=== PATIENT | female | born 1975 | race Hispanic/Latino ===

== ENCOUNTER 2016-11-30 18:29 | Inpatient (IN) | payer MEDICAID ==
--- NOTE | 2016-11-30 20:06 | C.PDOC ---
History Of Present Illness 41 yr old female presents to the ER for heroin detox. Patient was pre-screened for detox. Patient denies any medical c/o. Time Seen by Provider: 11/30/16 19:23 Chief Complaint (Nursing): Substance Abuse History Per: Patient History/Exam Limitations: no limitations Onset/Duration Of Symptoms: Persistent Current Symptoms Are (Timing): Still Present Recent travel outside of the [place]: No Past Medical History Reviewed: Historical Data, Nursing Documentation, Vital Signs Vital Signs: Last Vital Signs Temp 97.9 F 11/30/16 23:22 Pulse 79 11/30/16 23:22 Resp 20 11/30/16 23:22 BP 123/75 11/30/16 23:22 Pulse Ox 99 12/01/16 02:02 Family History: States: No Known Family Hx - Social History Hx Alcohol Use: Yes Hx Substance Use: Yes - Immunization History Hx Tetanus Toxoid Vaccination: No Hx Influenza Vaccination: No Hx Pneumococcal Vaccination: No Review Of Systems Except As Marked, All Systems Reviewed And Found Negative. Constitutional: Negative for: Fever Cardiovascular: Negative for: Chest Pain Gastrointestinal: Negative for: Nausea, Vomiting Neurological: Negative for: Weakness, Numbness Physical Exam - Physical Exam Appears: Non-toxic, No Acute Distress Skin: Warm, Dry Head: Atraumatic, Normacephalic Eye(s): bilateral: PERRL, Other (small pupils ) Ear(s): Bilateral: Normal Oral Mucosa: Moist Neck: Normal, Normal ROM, No Paracervical Tenderness, No Step Off Deformity, Supple Chest: Symmetrical, No Tenderness Cardiovascular: Rhythm Regular, No Murmur Respiratory: Normal Breath Sounds, No Rales, No Rhonchi, No Stridor, No Wheezing Gastrointestinal/Abdominal: Normal Exam, Soft, No Tenderness, No Guarding, No Rebound Extremity: Normal ROM, No Swelling, Other (No tremors. ) Extremity: Bilateral: Normal Color And Temperature, Normal ROM Neurological/Psych: Oriented x3, Normal Speech, Normal Motor Gait: Steady ED Course And Treatment - Laboratory Results Result Diagrams: 11/30/16 20:27 11/30/16 20:01 O2 Sat by Pulse Oximetry: 99 Pulse Ox Interpretation: Normal Progress Note: Pt is medically cleared for detox. Pt was evaluated by crisis and admitted to Detox, remains stable in ER Reassessment Condition: Improved Medical Decision Making Medical Decision Making: PLAN: * Alcohol Serum * Drug Screen * CBC * Urinalysis Disposition - Disposition Disposition: HOME/ ROUTINE Disposition Time: 02:01 Condition: STABLE - Clinical Impression Clinical Impression: Opiate dependence - PA / MECHANICAL ESTIMATOR / Resident Statement MD/DO has reviewed & agrees with the documentation as recorded. - Scribe Statement The provider has reviewed the documentation as recorded by the Scribe Concepcion Hughes All medical record entries made by the Aceibmargret were at my direction and personally dictated by me. I have reviewed the chart and agree that the record accurately reflects my personal performance of the history, physical exam, medical decision making, and the department course for this patient. I have also personally directed, reviewed, and agree with the discharge instructions and disposition.
[2016-11-30 20:10] LABS: CHLORIDE 99 mmol/L (98-107); POTASSIUM 3.9 mmol/L (3.6-5.2); SODIUM 139 mmol/L (132-148)
[2016-11-30 20:12] LABS: GFR AFRICAN-AMERICAN > 60
[2016-11-30 20:13] LABS: ALB/GLOB RATIO 1.2 (1.0-2.1); ALKALINE PHOSPHATASE 60 U/L (38-126); ALT/SGPT 10 U/L (9-52); AST/SGOT 32 U/L (14-36); BILIRUBIN,TOTAL 0.6 mg/dL (0.2-1.3); BLOOD UREA NITROGEN 7 mg/dL (7-17); CALCIUM 8.8 mg/dl (8.6-10.4); CARBON DIOXIDE 26 mmol/L (22-30); GLUCOSE,RANDOM 86 mg/dL (65-105); TOTAL PROTEIN 7.6 g/dL (6.3-8.3)
[2016-11-30 20:14] LABS: ALCOHOL SERUM < 10 mg/dl (0-10)
[2016-11-30 20:15] LABS: RBC URINE 21 /hpf (0-3); URINE BACTERIA RARE (<OCC); URINE BILIRUBIN NEGATIVE (NEGATIVE); URINE BLOOD 3+ (NEGATIVE); URINE COLOR Yellow (YELLOW); URINE GLUCOSE (UA) NORMAL (Normal); URINE KETONE NEGATIVE (NEGATIVE); URINE LEUKOCYTE ESTERASE NEG Leu/uL (Negative); URINE PROTEIN NEGATIVE (NEGATIVE); URINE UROBILINOGEN NORMAL mg/dL (0.2-1.0); WBC URINE 2 /hpf (0-5)
[2016-11-30 20:31] LABS: BASO % 0.3 % (0.0-2.0); EOS # 0.1 K/uL (0.0-0.7); HEMATOCRIT 35.7 % (34.0-47.0); LYMPH # 2.2 K/uL (1.0-4.3); LYMPH % 34.4 % (20.0-40.0); MEAN CELL VOLUME 85.6 fL (81.0-99.0); MEAN CORPUSCULAR HEMOGLOBIN 27.7 pg (27.0-31.0); MEAN CORPUSCULAR HGB CONC 32.4 g/dL (33.0-37.0); MONO # 0.4 K/uL (0.0-0.8); MONO % 6.1 % (0.0-10.0); WHITE BLOOD COUNT 6.4 K/uL (4.8-10.8)
[2016-11-30] MEDS ORDERED: Buprenorphine Hydrochloride 2 mg SL ONE ×2 (23:03→23:12)
[2016-11-30] MEDS ORDERED: Benzocaine/Menthol (Cepacol) Lozenge PO PRN (23:03)
[2016-12-01] MEDS ORDERED: Buprenorphine Hydrochloride 2 mg SL SCH ×2 (00:04→10:00)
[2016-12-01] MEDS ORDERED: Buprenorphine Hydrochloride 2 mg SL ONE ×2 (00:17→16:49)
[2016-12-01] MEDS: Buprenorphine Hydrochloride 2 mg SL SCH (10:36)
--- NOTE | 2016-12-01 11:10 | PCM.PSYCH ---
Initial Psychiatric Evaluation - Initial Psychiatric Evaluation Type of Admission: Voluntary Legal Status: Capacity Chief Complaint (in patient's own words): "I need to stop heroin" History of Present Illness and Precipitating Events: The patient is seen, chart reviewed and case discussed. This is a 41-year-old -Finnish female, single with 2 children, unemployed and homeless. The patient is here for heroin use. She uses intranasally up to 30 bags a day for the past 10 years. This is her second detox and she had been to rehabilitation once. She used methadone for 8 years at [facility] in [place] but quit 2 years ago. She also uses cocaine mostly crack and denies all other substances except for Xanax. She states that she takes 1 or 2 sticks a day but only a few months. She denies any withdrawal symptoms from them. She reports depressive symptoms including anhedonia, low self-esteem and poor sleep and appetite. However she denies feeling suicidal or hopeless. No manic or psychotic symptoms elicited. Past psych history: She was on Seroquel in the past and when she was 16 years old she attempted suicide. No psych admissions since then. Family psych history: Denies Medical history: Overweight Current Medications: Active Medications Generic Name Dose Route Start Last Admin Trade Name Freq PRN Reason Stop Dose Admin Benzocaine/Menthol 1 angelia 11/30/16 23:03 Cepacol Sore Throat PO QID PRN Sore Throat Buprenorphine HCl 8 mg 12/01/16 10:00 12/01/16 10:36 Subutex SL 12/05/16 09:59 8 mg DAILY JIMY Administration Taper Clonidine HCl 0.1 mg 11/30/16 23:03 12/01/16 02:17 Catapres PO 0.1 mg Q8 PRN Administration COWS Score More or Equal to 5 Hydroxyzine HCl 25 mg 11/30/16 23:06 12/01/16 08:29 Atarax PO 25 mg Q6 PRN Administration Agitation Influenza Virus Vaccine 45 mcg 12/03/16 10:00 Afluria IM 12/03/16 10:01 .ONCE ONE Loperamide HCl 2 mg 11/30/16 23:03 Imodium PO Q8 PRN Diarrhea Nicotine 1 patch 12/01/16 10:00 12/01/16 10:35 Nicoderm Cq TD 1 patch DAILY JIMY Administration Ondansetron HCl 4 mg 11/30/16 23:03 Zofran Tab PO Q8 PRN Nausea/Vomiting Pneumococcal Polyvalent Vaccine 0.5 ml 12/03/16 10:00 Pneumovax 23 Vaccine IM 12/03/16 10:01 .ONCE ONE Trazodone HCl 50 mg 11/30/16 22:09 11/30/16 22:36 Desyrel PO 50 mg HS PRN Administration insomnia Past Psychiatric History - Past Psychiatric History Previous Treatment History: Inpatient (when she was 16 yo) Pertinent Medical Hx (Current Medical&Sleep Prob, Allergies): Allergies Allergy/AdvReac Type Severity Reaction Status Date / Time No Known Allergies Allergy Verified 11/30/16 19:17 No Known Home Med 11/30/16 Review of Systems - Neurological Neurological: UNREMARKABLE - Psychiatric Psychiatric: Abnormal Sleep Pattern, Anhedonia, Anxiety, Difficulty Concentrating. absent: Hallucinations, Homicidal Ideation, Paranoia, Suicidal Ideation Mental Status Examination - Personal Presentation Personal Presentation: Looks older than stated age - Affect Affect: Constricted - Motor Activity Motor Activity: Calm - Reliability in Providing Information Reliability in Providing Information: Good - Speech Speech: Organized - Mood Mood: Depressed, Anxious - Formal Thought Process Formal Thought Process: No Impairment - Obsessions/Compulsions Obsessions: No Compulsions: No - Cognitive Functions Orientation: Person, Place, Situation, Time Sensorium: Alert Attention/Concentration: Attentive Estimate of Intelligence: Average Judgement: Intact, as evidence by: Insight regarding need for hospitalization Memory: Recent intact, as evidence by: Ability to recall events of the day, Remote intact, as evidenced by: Abilit to recall sig. life events - Risk Risk: Withdrawal, Diminished functioning - Strength & Assets Inventory Strength & Assets Inventory: Cooperative - Limitations Limitations: Living alone DSM 5 DX - DSM 5 DSM 5 Diagnosis: Opioid withdrawal Opioid use disorder, severe Cocaine use disorder, severe Sedative hypnotic use disorder, moderate Depressive disorder unspecified - Recommended/Plan of Treatment Treatment Recommendations and Plan of Treatment: Opioids: -Subutex detox -As needed medications -Attend groups and activities -SC for abstinence Cocaine: -Gabapentin -SC for abstinence -Attend groups and activities Benzos: -Monitor symptoms Depression: -Seroquel at bedtime -CBT and supportive therapy 32 minutes Projected ELOS: 4- 5 days Prognosis: Good with treatment Discharge Plan and Discharge Criteria: No withdrawal symptoms Refer to rehabilitation and MAT - Smoking Cessation Smoking Cessation Initiated: Yes
[2016-12-02] MEDS: Buprenorphine Hydrochloride 2 mg SL SCH (09:19)
--- NOTE | 2016-12-02 11:53 | PCM.PYCHPN ---
Psychiatric Progress Note - Psychiatric Progress Note Patient seen today, length of contact: 16 min Patient Chief Complaint: I'm having withdrawal symptoms Problems Identified/Issues Discussed: Patient seen and evaluated, chart reviewed and discussed with the nurse. The patient reports improvement in her mood but still reports withdrawal symptoms including abdominal cramps, joint pains, anxiety, and sweating. As per the nurse patient is improving but still reports of anxiety. Patient reports depressed mood but denies any suicidal ideation or homicidal ideation. Patient is taking medications and denies any side effects. Supportive therapy and psychoeducation were given. Medication Change: Yes (subutex taper) Medical Record Reviewed: Yes Mental Status Examination - Cognitive Function Orientation: Person, Place, Situation, Time Memory: Intact Attention: WNL Concentration: Poor Association: WNL Fund of Knowledge: Poor - Mood Mood: Depressed, Anxious - Affect Affect: Constricted - Speech Speech: Soft - Formal Thought Process Formal Thought Process: No Impairment - Suicidal Ideation Suicidal Ideation: No - Homicidal Ideation Homicidal Ideation: No Goal/Treatment Plan - Goal/Treatment Plan Need for Continued Stay: Discharge may exacerbated symptoms, Severe functional impairment Progress Toward Problem(s) and Goals/Treatment Plan: Opioid withdrawal Opioid use disorder, severe Cocaine use disorder, severe Sedative hypnotic use disorder, moderate Depressive disorder unspecified Opioids: -Subutex detox -As needed medications -Attend groups and activities -MT for abstinence Cocaine: -Gabapentin -MT for abstinence -Attend groups and activities Benzos: -Monitor symptoms Depression: -Seroquel at bedtime -CBT and supportive therapy - Smoking Cessation Smoking Cessation Initiated: Yes
[2016-12-02] MEDS ORDERED: Buprenorphine Hydrochloride 2 mg SL ONE (12:53)
[2016-12-03] MEDS: Buprenorphine Hydrochloride 2 mg SL SCH (09:00)
[2016-12-03] MEDS ORDERED: Pneumococcal 23-Valent Vaccine IM ONE (10:00)
[2016-12-03] MEDS ORDERED: Influenza Virus Vaccine 45 mcg/0.5 ml Syr IM ONE (10:00)
--- NOTE | 2016-12-03 11:46 | PCM.PYCHPN ---
Psychiatric Progress Note - Psychiatric Progress Note Patient seen today, length of contact: 15 minutes Patient Chief Complaint: I'm feeling better with the treatment Problems Identified/Issues Discussed: Patient seen. Chart reviewed. Case discussed with the staff. Issues related to illness and treatment were discussed with the patient. Patient reported compliant with treatment with no adverse affects. Reported feeling better with the treatment. Has very minimal withdrawal symptoms. At the time of evaluation, patient was awake alert oriented 3, had no delusions, no auditory visual hallucinations, no suicidal ideations or homicidal ideations. Medical Problems: None reported Diagnostic Results: Reviewed DSM 5 Symptoms Update: Improvement in symptoms with treatment Medication Change: No Medical Record Reviewed: Yes Mental Status Examination - Cognitive Function Orientation: Person, Place, Situation, Time Memory: Intact Attention: WNL Concentration: WNL Association: WNL Fund of Knowledge: [facility] Decription of patient's judgement and insights: Fair - Mood Mood: Neutral - Affect Affect: Other (Appropriate) - Speech Speech: Appropriate - Formal Thought Process Formal Thought Process: No Impairment Psychotic Thoughts and Behaviors: None - Suicidal Ideation Suicidal Ideation: No - Homicidal Ideation Homicidal Ideation: No Goal/Treatment Plan - Goal/Treatment Plan Need for Continued Stay: Remain at risks for inpatient hospitalization, Discharge may exacerbated symptoms, Severe functional impairment Progress Toward Problem(s) and Goals/Treatment Plan: Improvement with treatment Patient education Supportive therapy Continue treatment as before Wants to go to [facility] for follow-up appointment after discharge from the hospital. Estimated Date of D/C: 12/05/16 - Smoking Cessation Smoking Cessation Initiated: Yes
[2016-12-04] MEDS: Buprenorphine Hydrochloride 2 mg SL SCH (09:06)
[2016-12-04 15:37] VITALS: RESP 18
--- NOTE | 2016-12-04 16:04 | PCM.PYCHPN ---
Psychiatric Progress Note - Psychiatric Progress Note Patient seen today, length of contact: 15 minutes Patient Chief Complaint: I'm feeling better with the treatment Problems Identified/Issues Discussed: Patient seen. Chart reviewed. Case discussed with the staff. Issues related to illness and treatment were discussed with the patient. Patient reported compliant with treatment with no adverse affects. Reported feeling better with the treatment. Has no withdrawal symptoms. At the time of evaluation, patient was awake alert oriented 3, had no delusions, no auditory visual hallucinations , no suicidal ideations or homicidal ideations. Medical Problems: None reported Diagnostic Results: Reviewed DSM 5 Symptoms Update: Improving with treatment Medication Change: No Medical Record Reviewed: Yes Mental Status Examination - Cognitive Function Orientation: Person, Place, Situation, Time Memory: Intact Attention: WNL Concentration: WNL Association: WNL Fund of Knowledge: [facility] Decription of patient's judgement and insights: Fair - Mood Mood: Neutral - Affect Affect: Other (Appropriate) - Speech Speech: Appropriate - Formal Thought Process Formal Thought Process: No Impairment Psychotic Thoughts and Behaviors: None reported - Suicidal Ideation Suicidal Ideation: No - Homicidal Ideation Homicidal Ideation: No Goal/Treatment Plan - Goal/Treatment Plan Need for Continued Stay: Remain at risks for inpatient hospitalization, Discharge may exacerbated symptoms, Severe functional impairment Progress Toward Problem(s) and Goals/Treatment Plan: Improvement with treatment Patient education Supportive therapy Continue treatment as before Wants to go to [facility] for follow-up appointment after discharge from the hospital. Estimated Date of D/C: 12/05/16 - Smoking Cessation Smoking Cessation Initiated: Yes
[2016-12-05 08:41] VITALS: BP 106/71; PULSE 62; TEMP 97.7; O2SAT 100
--- NOTE | 2016-12-05 11:25 | PCM.PYCHDC ---
Mental Status Examination - Mental Status Examination Orientation: Person, Place, Situation, Time Memory: Intact Mood: Neutral Affect: Other (Appropriate) Speech: Appropriate Attention: WNL Concentration: WNL Association: WNL Fund of Knowledge: WNL Formal Thought Process: No Impairment Description of patient's judgement and insight: Fair Psychotic Thoughts and Behaviors: None Suicidal Ideation: No Current Homicidal Ideation?: No Discharge Summary - Discharge Note Reason for Hospitalization: Opiate use Psychiatric History (includes Medical, Family, Personal Hx): Opiate use, depression Laboratory Data: Reviewed Consultations:: List each consultation separately and include: 1. Reason for request. 2. Findings. 3. Follow-up Summary of Hospital Course include:: 1. Description of specific treatment plan utilized for patients during their course of treatmen. 2. Summarize the time- course for resolution of acute symptoms and/or regressed behaviors. 3. Describe issues identified and worked on during hospitalization. 4. Describe medication utilized. 5. Describe medical problems identified and treated. 6. Reassessment of suicide risk Summary of Hospital Course: The patient is seen, chart reviewed and case discussed. This is a 41-year-old -Russian female, single with 2 children, unemployed and homeless. The patient is here for heroin use. She uses intranasally up to 30 bags a day for the past 10 years. This is her second detox and she had been to rehabilitation once. She used methadone for 8 years at [facility] in [place] but quit 2 years ago. She also uses cocaine mostly crack and denies all other substances except for Xanax. She states that she takes 1 or 2 sticks a day but only a few months. She denies any withdrawal symptoms from them. She reports depressive symptoms including anhedonia, low self-esteem and poor sleep and appetite. However she denies feeling suicidal or hopeless. No manic or psychotic symptoms elicited. Past psych history: She was on Seroquel in the past and when she was 16 years old she attempted suicide. No psych admissions since then. During her stay in the hospital, patient was started on Subutex, Seroquel and other supportive medications. With this treatment patient started feeling better. Patient tolerated treatment very well with no adverse affects. Today patient was stable and ready for discharge. At the time of evaluation and discharge, patient was awake alert oriented 3, had no delusions, no auditory or visual hallucinations, no suicidal ideations or homicidal ideations. Patient was discharged in a stable condition. [facility] will [facility] follow-[facility] care. - Final Diagnosis (DSM 5) Condition upon Discharge: STABLE Disposition: HOME/ ROUTINE Follow-up Treatment Plan: Patient will go to [facility] for follow-up care Prescriptions/Medication Reconciliation: Gabapentin [Neurontin] 300 mg PO BID #60 cap QUEtiapine [Seroquel] 100 mg PO HS #30 tab - Smoking Cessation Smoking Cessation Medication prescribed: Yes - Antipsychotic Medications Pt discharged on 2 or more routine antipsychotic medications: No
== END 2016-12-05 10:00 | disposition home or self-care (01) | DRG 745 ==
LOC: C.ER 18:29 → C.7D 21:16
PROVIDERS: ADMIT Psychiatry & Neurology Psychiatry; ATTEND Psychiatry & Neurology Psychiatry
PROC: HZ2ZZZZ Detoxification Services for Substance Abuse Treatment (ICD-10-PCS; principal; 2016-11-30)
DX: F11.23 Opioid dependence with withdrawal (principal); F14.20 Cocaine dependence, uncomplicated; F17.200 Nicotine dependence, unspecified, uncomplicated; F41.9 Anxiety disorder, unspecified; F32.9 Major depressive disorder, single episode, unspecified

== ENCOUNTER 2017-11-27 12:28 | Inpatient (IN) | payer MEDICAID ==
[2017-11-27 13:06] LABS: SQUAMOUS EPITHIAL 3 /hpf (0-5); URINE AMORPHOUS SEDIMENT RARE /ul (<OCC); URINE BACTERIA MANY (<OCC); URINE BILIRUBIN NEGATIVE (NEGATIVE); URINE BLOOD NEGATIVE (NEGATIVE); URINE CLARITY Hazy (Clear); URINE COLOR Yellow (YELLOW); URINE GLUCOSE (UA) NORMAL (Normal); URINE LEUKOCYTE ESTERASE 3+ Leu/uL (Negative); URINE PROTEIN NEGATIVE (NEGATIVE)
[2017-11-27 13:20] LABS: HCG,QUALITATIVE URINE NEGATIVE (NEGATIVE)
[2017-11-27] MEDS ORDERED: Sodium Chloride 0.9% 1,000 ML IV ONE (13:54)
[2017-11-27 14:16] LABS: BASO % 0.5 % (0.0-2.0); EOS # 0.1 K/uL (0.0-0.7); EOS % 0.9 % (0.0-4.0); HEMOGLOBIN 10.7 g/dL (11.0-16.0); LYMPH % 14.7 % (20.0-40.0); MEAN CELL VOLUME 84.2 fL (81.0-99.0); MEAN CORPUSCULAR HEMOGLOBIN 27.8 pg (27.0-31.0); MEAN PLATELET VOLUME 7.2 fL (7.2-11.7); MONO # 0.8 K/uL (0.0-0.8); MONO % 10.9 % (0.0-10.0); NEUT # 5.2 K/uL (1.8-7.0); NRBC % 0.1 % (0.0-2.0); RBC 3.85 Mil/uL (3.80-5.20); RED CELL DISTRIBUTION WIDTH 15.3 % (11.5-14.5); WHITE BLOOD COUNT 7.1 K/uL (4.8-10.8)
[2017-11-27 14:27] LABS: ALBUMIN 3.6 g/dL (3.5-5.0); ALT/SGPT 44 U/L (9-52); AST/SGOT 36 U/L (14-36); BLOOD UREA NITROGEN 10 mg/dL (7-17); CALCIUM 8.8 mg/dl (8.6-10.4); GFR AFRICAN-AMERICAN > 60; GFR NON-AFRICAN AMERICAN > 60; LIPASE 52 U/L (23-300)
[2017-11-27] MEDS ORDERED: Sodium Chloride 0.9% 250 ML IV ONE (14:34)
--- NOTE | 2017-11-27 16:03 | US ---
HISTORY: RUQ pain COMPARISON: None. TECHNIQUE: Sonographic evaluation of the right upper quadrant of the abdomen. FINDINGS: LIVER: Measures 19.1 cm in length. Normal echogenicity of the liver parenchyma. No mass. No intrahepatic bile duct dilatation. Normal hepatopetal portal venous flow demonstrated. GALLBLADDER: Gallbladder contracted. No cholelithiasis or mural thickening. COMMON BILE DUCT: Measures to mm. No stones. No dilatation. PANCREAS: Limited visualization. Detail obscured by overlying bowel gas. No mass or peripancreatic fluid. RIGHT KIDNEY: Measures 11.8 cm in length. Normal echogenicity. No calculus, mass, or hydronephrosis. AORTA: No aneurysmal dilatation. IVC: Unremarkable. OTHER FINDINGS: None . IMPRESSION: No evidence of cholelithiasis or cholecystitis. Mild hepatomegaly without fatty infiltration.
--- NOTE | 2017-11-27 16:53 | C.PDOC ---
Time Seen by Provider: 11/27/17 13:08 Chief Complaint (Nursing): Abdominal Pain History Per: Patient Onset/Duration Of Symptoms: Days (about 1 week) Current Symptoms Are (Timing): Still Present Severity: Moderate Location Of Pain/Discomfort: RUQ Radiation Of Pain To:: Back, Flank Quality Of Discomfort: "Pain" Associated Symptoms: Fever, Nausea, Vomiting Alleviating Factors: None Additional History Per: Prior Records Abnormal Vaginal Bleeding: No Past Medical History Reviewed: Historical Data, Nursing Documentation, Vital Signs Vital Signs: Last Vital Signs Temp 98 F 11/27/17 12:33 Pulse 65 11/27/17 12:33 Resp 18 11/27/17 12:33 BP 109/72 11/27/17 12:33 Pulse Ox 100 11/27/17 16:53 - Medical History PMH: Anxiety, Bipolar Disorder, Depression, Diabetes (Patient reports being "borderline" diabetic.) - [facility] Procedures DETOXIFICATION SERVICES FOR SUBSTANCE ABUSE TREATMENT (11/30/16) Family History: States: Unknown Family Hx - Social History Hx Alcohol Use: No Hx Substance Use: Yes (IVDU HEROIN) - Immunization History Hx Tetanus Toxoid Vaccination: No Hx Influenza Vaccination: Yes Hx Pneumococcal Vaccination: No Review Of Systems Except As Marked, All Systems Reviewed And Found Negative. Constitutional: Positive for: Fever Cardiovascular: Negative for: Chest Pain Respiratory: Negative for: Shortness of Breath Gastrointestinal: Positive for: Nausea, Vomiting, Abdominal Pain. Negative for : Diarrhea Genitourinary: Positive for: Dysuria Musculoskeletal: Positive for: Back Pain. Negative for: Neck Pain Skin: Negative for: Rash Neurological: Negative for: Weakness, Numbness Physical Exam - Physical Exam Appears: Non-toxic, No Acute Distress Skin: Normal Color, Warm, Dry, No Rash Head: Atraumatic, Normacephalic Eye(s): bilateral: PERRL, EOMI Neck: Normal ROM, Supple Cardiovascular: Rhythm Regular Respiratory: Normal Breath Sounds, No Accessory Muscle Use Gastrointestinal/Abdominal: Soft, Tenderness (RUQ) Back: CVA Tenderness (right) Extremity: Normal ROM, Other (Track fernandes on upper extremities) Neurological/Psych: Oriented x3, Normal Motor, Normal Sensation ED Course And Treatment - Laboratory Results Result Diagrams: 11/27/17 14:11 11/27/17 14:11 Lab Interpretation: Abnormal Interpretation Of Abnormal: UTI Urine POC: Negative O2 Sat by Pulse Oximetry: 100 Pulse Ox Interpretation: Normal - CT Scan/US RUQ Sono Other Rad Studies (CT/US): Read By Radiologist, Radiology Report Reviewed CT/US Interpretation: IMPRESSION: No evidence of cholelithiasis or cholecystitis. Mild hepatomegaly without fatty infiltration. CT abd/pelv Other Rad Studies (CT/US): Read By Radiologist, Radiology Report Reviewed CT/US Interpretation: IMPRESSION: Regions of diminished enhancement are identified involving the right kidney upper and mid pole which may reflect pyelonephritis. Differential considerations include sequela of vascular insults /infarct or infiltrating process. Correlate clinically. Moderate to severe diffuse constipation. Splenomegaly. Hepatomegaly. Additional findings as above. Progress - Interventions Interventions:: Observation, Intravenous fluid - Medications Administered Intravenous: Antiemetic, H-2 venecia, NSAID - Data Reviewed Data Reviewed: Lab, Diagnostic imaging, Old records - Patient Status Patient status: Partially improved - Continuity of Care Discussed patient case with:: Patient, Family-HIPPA compliant, ED Nurse, On- call PMD-pt unassigned - Patient Plan Patient Plan: Admission Disposition Discussed With : Mary Ocasio Comment: She accepted pt on her service. Doctor Will See Patient In The: Hospital Counseled Patient/Family Regarding: Studies Performed, Diagnosis - Disposition Disposition: HOSPITALIZED Disposition Time: 18:09 Condition: GUARDED - Clinical Impression Clinical Impression: Pyelonephritis, acute, Lesion of right zuni kidney
[2017-11-27] MEDS ORDERED: cefTRIAXone IV 1 gm in Dextros 50 ML IVPB ONE ×2 (16:59→17:16)
[2017-11-27] MEDS ORDERED: Iohexol 300 100 ML IJ ONE (17:14)
--- NOTE | 2017-11-27 17:57 | CT ---
PROCEDURE: CT Abdomen and Pelvis with contrast HISTORY: Right side pain. UTI. Pyelonephritis? COMPARISON: None available. TECHNIQUE: Contrast dose: 100 cc Omnipaque 300 Radiation dose: Total exam DLP = 272.98 mGy-cm. This CT exam was performed using one or more of the following dose reduction techniques: Automated exposure control, adjustment of the mA and/or kV according to patient size, and/or use of iterative reconstruction technique. FINDINGS: LOWER THORAX: Minimal bibasilar atelectasis. No visible pleural effusion or pneumothorax. LIVER: Hepatomegaly. GALLBLADDER AND BILE DUCTS: Contracted gallbladder limits evaluation. PANCREAS: Not well-visualized. Grossly unremarkable. SPLEEN: Splenomegaly. ADRENALS: Unremarkable. KIDNEYS AND URETERS: Regions of diminished enhancement are identified involving the right kidney upper and mid pole which may reflect pyelonephritis. Differential considerations include sequela of vascular insults/infarct or infiltrating process. VASCULATURE: No aortic aneurysm. BOWEL: Stomach is nondistended. Lack of oral contrast limits evaluation for bowel pathology. Bowel loops appear within normal limits of caliber without evidence of obstruction. Moderate to severe diffuse constipation. APPENDIX: The appendix appears within normal limits of caliber. No secondary signs of acute appendicitis. PERITONEUM: No significant free fluid. No definite free air. LYMPH NODES: No bulky adenopathy identified. BLADDER: Decompressed urinary bladder limits evaluation. REPRODUCTIVE: The urinary bladder is present. BONES: Vacuum disc phenomenon at L5-S1. OTHER FINDINGS: None. IMPRESSION: Regions of diminished enhancement are identified involving the right kidney upper and mid pole which may reflect pyelonephritis. Differential considerations include sequela of vascular insults/infarct or infiltrating process. Correlate clinically. Moderate to severe diffuse constipation. Splenomegaly. Hepatomegaly. Additional findings as above.
[2017-11-27 22:51] LABS: BARBITURATES, UR NEGATIVE (NEGATIVE); BENZODIAZEPINES, UR NEGATIVE (NEGATIVE); PHENCYCLIDINE, UR NEGATIVE (NEGATIVE)
[2017-11-27 22:52] LABS: OPIATES, UR POSITIVE (NEGATIVE)
[2017-11-28] MEDS: Enoxaparin 40 mg Syringe SC SCH (10:01)
--- NOTE | 2017-11-28 11:08 | CP.PCM.HP ---
History of Present Illness - History of Present Illness History of Present Illness: pt came in toed for abd pain flank progressive for one weeke has alot of pus uron Present on Admission - Present on Admission Any Indicators Present on Admission: No Review of Systems - Review of Systems Systems not reviewed;Unavailable: Acuity of Condition - Constitutional Constitutional: Chills, Fatigue - EENT Eyes: As Per HPI Ears: As Per HPI Nose/Mouth/Throat: As Per HPI - Breasts Breasts: As Per HPI - Cardiovascular Cardiovascular: As Per HPI - Gastrointestinal Gastrointestinal: As Per HPI - Genitourinary Genitourinary: Dysuria, Flank Pain, Voiding Freq/Small Amts - Reproductive: Female Reproductive:Female: As Per HPI - Menstruation Menstruation: As Per HPI - Musculoskeletal Musculoskeletal: As Per HPI - Integumentary Integumentary: As Per HPI - Neurological Neurological: As Per HPI - Psychiatric Psychiatric: Depression - Hematologic/Lymphatic Additional comments: aneamia Past Patient History - Infectious Disease Hx of Infectious Diseases: None - Past Medical History & Family History Past Medical History?: No - Past Social History Smoking Status: Light Smoker < 10 Cigarettes Daily - CARDIAC Hx Cardiac Disorders: No Hx Hypertension: No - PULMONARY Hx Respiratory Disorders: No Hx Tuberculosis: No - NEUROLOGICAL Hx Neurological Disorder: No HX Cerebrovascular Accident: No Hx Seizures: No - HEENT Hx HEENT Problems: No - RENAL Hx Chronic Kidney Disease: No - ENDOCRINE/METABOLIC Hx Endocrine Disorders: Yes Hx Systemic Lupus Erythematosus: Yes - HEMATOLOGICAL/ONCOLOGICAL Hx Blood Disorders: No Hx Cancer: No Hx Human Immunodeficiency Virus (HIV): No - INTEGUMENTARY Hx Dermatological Problems: No - MUSCULOSKELETAL/RHEUMATOLOGICAL Hx Musculoskeletal Disorders: No Hx Falls: No - GASTROINTESTINAL Hx Gastrointestinal Disorders: No - GENITOURINARY/GYNECOLOGICAL Hx Genitourinary Disorders: No Hx Sexually Transmitted Disorders: No - PSYCHIATRIC Hx Psychophysiologic Disorder: Yes Hx Anxiety: Yes Hx Bipolar Disorder: Yes Hx Depression: Yes Hx Substance Use: Yes (heroine) - SURGICAL HISTORY Hx Surgeries: Yes Hx Section: Yes (X2) - ANESTHESIA Hx Anesthesia: Yes Hx Anesthesia Reactions: No Hx Malignant Hyperthermia: No Has any member of the family had a problem w/ anesthesia?: No Meds Allergies/Adverse Reactions: Allergies Allergy/AdvReac Type Severity Reaction Status Date / Time No Known Allergies Allergy Verified 11/27/17 12:36 Physical Exam - Constitutional Appears: In Acute Distress Additional comments: withdrwaing from heroin abuse - Head Exam Head Exam: ATRAUMATIC - Eye Exam Eye Exam: Conjunctival injection - ENT Exam ENT Exam: Mucous Membranes Dry - Neck Exam Neck exam: Positive for: Full Rom - Respiratory Exam Respiratory Exam: Clear to Auscultation Bilateral - Cardiovascular Exam Cardiovascular Exam: REGULAR RHYTHM - GI/Abdominal Exam GI & Abdominal Exam: Tenderness (flank and lower abd) - Rectal Exam Rectal Exam: NORMAL INSPECTION - Extremities Exam Extremities exam: Positive for: normal inspection Additional comments: arms has iv tracks for drug ingetion - Back Exam Back exam: NORMAL INSPECTION - Neurological Exam Neurological exam: Normal Gait, Oriented x3 - Skin Skin Exam: Normal Color, Pallor Results - Vital Signs Recent Vital Signs: Last Vital Signs Temp 97.5 F L 11/28/17 08:00 Pulse 69 11/28/17 08:00 Resp 20 11/28/17 08:00 BP 105/65 11/28/17 08:00 Pulse Ox 98 11/28/17 08:00 - Labs Result Diagrams: 11/27/17 14:11 11/27/17 14:11 Labs: Laboratory Results - last 24 hr 11/27/17 11/27/17 11/27/17 12:51 14:11 14:11 WBC 7.1 RBC 3.85 Hgb 10.7 L Hct 32.4 L MCV 84.2 MCH 27.8 MCHC 33.0 RDW 15.3 H Plt Count 385 MPV 7.2 Neut % (Auto) 73.0 Lymph % (Auto) 14.7 L [place] % (Auto) 10.9 H Eos % (Auto) 0.9 Baso % (Auto) 0.5 Neut # (Auto) 5.2 Lymph # (Auto) 1.0 [place] # (Auto) 0.8 Eos # (Auto) 0.1 Baso # (Auto) 0.0 Sodium 138 Potassium 3.6 Chloride 100 Carbon Dioxide 26 Anion Gap 15 BUN 10 Creatinine 0.7 Est GFR ( Amer) > 60 Est GFR (Non-Af Amer) > 60 Random Glucose 85 Calcium 8.8 Total Bilirubin 0.3 AST 36 ALT 44 Alkaline Phosphatase 83 Total Protein 7.3 Albumin 3.6 Globulin 3.7 Albumin/Globulin Ratio 1.0 Lipase 52 Urine Color Yellow Urine Clarity Hazy Urine pH 7.0 Ur Specific [place] 1.015 Urine Protein Negative Urine Glucose (UA) Normal Urine Ketones Negative Urine Blood Negative Urine Nitrate Positive H Urine Bilirubin Negative Urine Urobilinogen 4.0 H Ur Leukocyte Esterase 3+ H Urine WBC (Auto) 50 H Urine RBC (Auto) 12 H Ur Squamous Epith Cells 3 Amorphous Sediment Rare H Urine Bacteria Many H Urine HCG, Qual Negative Urine Opiates Screen Urine Methadone Screen Ur Barbiturates Screen Ur Phencyclidine Scrn Ur Amphetamines Screen U Benzodiazepines Scrn U Oth Cocaine Metabols U Cannabinoids Screen 11/27/17 22:26 WBC RBC Hgb Hct MCV MCH MCHC RDW Plt Count MPV Neut % (Auto) Lymph % (Auto) [place] % (Auto) Eos % (Auto) Baso % (Auto) Neut # (Auto) Lymph # (Auto) [place] # (Auto) Eos # (Auto) Baso # (Auto) Sodium Potassium Chloride Carbon Dioxide Anion Gap BUN Creatinine Est GFR ( Amer) Est GFR (Non-Af Amer) Random Glucose Calcium Total Bilirubin AST ALT Alkaline Phosphatase Total Protein Albumin Globulin Albumin/Globulin Ratio Lipase Urine Color Urine Clarity Urine pH Ur Specific [place] Urine Protein Urine Glucose (UA) Urine Ketones Urine Blood Urine Nitrate Urine Bilirubin Urine Urobilinogen Ur Leukocyte Esterase Urine WBC (Auto) Urine RBC (Auto) Ur Squamous Epith Cells Amorphous Sediment Urine Bacteria Urine HCG, Qual Urine Opiates Screen Positive H Urine Methadone Screen Negative Ur Barbiturates Screen Negative Ur Phencyclidine Scrn Negative Ur Amphetamines Screen Negative U Benzodiazepines Scrn Negative U Oth Cocaine Metabols Positive H U Cannabinoids Screen Negative Assessment & Plan - Assessment and Plan (Free Text) Assessment: acute pyelonephritis drug abuse heroin withdrwal Plan: cont as per orders - Date & Time Date: 11/28/17 Time: 11:12
--- NOTE | 2017-11-28 21:38 | CON ---
DATE: CHIEF COMPLAINT AND REASON FOR CONSULTATION: The patient referred by Dr. Ocasio for evaluation, co-management of the patient with history of polysubstance dependence, history of heroin dependence as well as cocaine abuse, and the patient states she wants detox. HISTORY OF PRESENT ILLNESS: This is case of 42-year-old who was admitted here with abdominal pain and back pain. The patient diagnosed to have right pyelonephritis. The patient was referred for co-management as the patient has an extensive history of abusing heroine by IV. The patient states she uses a bundle a day, which is about 10 bags per day. She is here with her . The patient reports that the last day of use was the day of admission and her drug screen is positive for opiates and cocaine. The patient reports that she is complaining of increasing withdrawal symptoms from heroine and she states that she want to go for an outpatient methadone clinic, possibly to [facility]. Her also was an active street drug user, today went to [facility]. The patient is complaining of severe abdominal pain, body aches, restlessness. Last night, she could not sleep, was given Restoril and also today was asking for methadone. She states that she was detoxed before, but now she wants to try methadone. The patient has been very restless, anxious and initially complaining of abdominal pain and back pain, wants methadone to control her withdrawal symptoms from heroin. PAST PSYCH HISTORY: History of depression, anxiety. PAST MEDICAL HISTORY: History of borderline diabetes. DRUG/ALCOHOL HISTORY: The patient has no alcohol use, but has a history of abusing IV heroin. The patient states a history of hepatitis in the past, but reports she has no history of being HIV positive. The patient states that she does whatever she can to get the drug, but denies any current legal issues. ALLERGIES: THE PATIENT HAS NO KNOWN ALLERGIES. LIST OF CURRENT MEDICATIONS: Ceftriaxone, Lovenox, Restoril, and Toradol. Drug screen is positive for opiates and cocaine. The patient denies using cocaine. She states that she only uses heroin. VITAL SIGNS: Temperature 97.5, pulse rate 69, blood pressure 105/65, respirations 20, oxygen saturation 98% on room air. REVIEW OF SYSTEMS: GENERAL: The patient is alert, restless, oriented to time. She is seen in her room, mostly turning. She said she has generalized body pain, asking for methadone. SKIN: Has multiple IV track fernandes in her upper extremities. HEENT: No headaches, no dizziness. NECK: Supple. RESPIRATORY: No dyspnea. CARDIOPULMONARY: No chest pain. GASTROINTESTINAL: Complaining of abdominal pain, nausea, and vomiting. EXTREMITIES: The patient moves extremities, complaining of body aches. NEUROLOGIC: Alert and oriented x3. Denies dysuria. MUSCULOSKELETAL: Generalized body aches. MENTAL STATUS EXAMINATION: Well-developed female, looks stated age, height 5 feet 2 inches and weighs 165 pounds. The patient is complaining of severe body aches, restlessness, and anxiety. The patient is going through opiate withdrawal. Speech is spontaneous. Affect is reactive. Mood is anxious. Thought process is coherent. Thought content, the patient is asking for methadone to control her heroin withdrawal symptoms. No psychosis or suicidal ideation. The patient is currently being treated with IV antibiotics for her pyelonephritis. Attention and memory seems to be fair. Insight and judgement limited. Impulse control is fair at this time. IMPRESSION: History of polysubstance dependence, opiate dependence, opiate withdrawal, cocaine abuse, pyelonephritis. PLAN AND RECOMMENDATIONS: The patient is seen, meds reviewed. We will give methadone 60 mg p.o. daily today for opiate withdrawal. May have change of Restoril to 30 mg p.o. at bedtime p.r.n. instead of standing and then add Ativan 2 mg p.o. q.6 p.r.n. for anxiety. The patient states that when she is medically cleared, she wants to go to an outpatient methadone clinic, possibly the [facility]. IV antibiotics ordered for pyelonephritis. Prognosis is guarded this time, but the patient is willing to be detoxed. Melchor Gil MD
[2017-11-29] MEDS: Enoxaparin 40 mg Syringe SC SCH (09:12)
--- NOTE | 2017-11-29 10:48 | CP.PCM.PN ---
Subjective - Date & Time of Evaluation Date of Evaluation: 11/29/17 Time of Evaluation: 10:45 - Subjective Subjective: flank pain is less started eating alitle bit canot sleep feels nausea now Objective - Vital Signs/Intake and Output Vital Signs (last 24 hours): Temp Pulse Resp BP Pulse Ox 98.4 F 57 L 20 93/58 L 96 11/29/17 08:02 11/29/17 08:02 11/29/17 08:02 11/29/17 08:02 11/29/17 08:02 Intake and Output: 11/29/17 11/29/17 06:59 18:59 Intake Total 300 400 Balance 300 400 - Medications Medications: Current Medications Enoxaparin Sodium (Lovenox) 40 mg SC DAILY [facility] Last Admin: 11/29/17 09:12 Dose: 40 mg Ceftriaxone Sodium 1 gm/ (Sodium Chloride) 100 mls @ 100 mls/hr IVPB DAILY [facility] PRN Reason: Protocol Last Admin: 11/29/17 09:12 Dose: 100 mls/hr Ketorolac Tromethamine (Toradol) 30 mg IVP Q6 PRN PRN Reason: Pain, moderate (4-7) Last Admin: 11/29/17 03:37 Dose: 30 mg Lorazepam (Ativan) 2 mg PO Q6H PRN PRN Reason: anxiety Methadone HCl (Methadone) 60 mg PO DAILY [facility] Last Admin: 11/29/17 09:11 Dose: 60 mg Temazepam (Restoril) 30 mg PO HS PRN PRN Reason: Insomnia Last Admin: 11/28/17 21:34 Dose: 30 mg - Labs Labs: 11/27/17 14:11 11/27/17 14:11 - Constitutional Appears: No Acute Distress - Head Exam Head Exam: NORMAL INSPECTION - Eye Exam Eye Exam: Normal appearance Pupil Exam: NORMAL ACCOMODATION - ENT Exam ENT Exam: Mucous Membranes Moist - Neck Exam Neck Exam: Full ROM - Respiratory Exam Respiratory Exam: Clear to Ausculation Bilateral - Cardiovascular Exam Cardiovascular Exam: REGULAR RHYTHM - GI/Abdominal Exam GI & Abdominal Exam: Tenderness, Normal Bowel Sounds - Rectal Exam Rectal Exam: NORMAL INSPECTION - Extremities Exam Extremities Exam: Normal Inspection - Neurological Exam Neurological Exam: Awake, Oriented x3 - Psychiatric Exam Psychiatric exam: Depressed - Skin Skin Exam: Normal Color Assessment and Plan - Assessment and Plan (Free Text) Assessment: ac pyelonephritis cocain abuse heroin withdrwal
[2017-11-29] MEDS: Meropenem 500 MG in Sodium Chloride 0.9% 100 ML IVPB SCH ×2 (14:33→22:17)
--- NOTE | 2017-11-29 21:38 | PN ---
DATE: 11/29/2017 SUBJECTIVE: The patient is seen, pain is much better today after receiving the methadone dose. She has been cooperative with staff, not complaining of any problems. The patient also is receiving IV antibiotics. We will try to lower her dose of methadone starting tomorrow to 50 mg daily and then to taper it while she is in the hospital. The patient is also taking Ativan p.r.n. Other than that, no behavioral problems noted. Review of her labs, the patient as stated has urinary infection and also her drug screen is positive for opiate and cocaine. VITAL SIGNS: Temperature is 98.4, pulse 57, blood pressure 93/58, respirations 20, oxygen saturation is 96% on room air. REVIEW OF SYSTEMS: GENERAL: Alert and oriented x3, she is seen in her room with some family members visiting her. SKIN: The patient has multiple IV track fernandes, but not complaining of diaphoresis or pruritus. HEENT: No headache. No dizziness. NECK: Supple. RESPIRATORY: No dyspnea. CARDIOVASCULAR: No chest pain. GASTROINTESTINAL: The patient is eating fairly well. EXTREMITIES: Patient moves extremities. MUSCULOSKELETAL: Weakness improving. NEURO: Alert and oriented x3. GENITOURINARY: No dysuria. MENTAL STATUS EXAMINATION: Well-developed female, who looks stated age, oriented x3. Mood is somewhat calmer after receiving methadone. Affect is reactive. Speech is spontaneous. The patient is expressing desire to be followed in an outpatient clinic, possibly to [facility]. Thought process, coherent. Thought content, no psychosis. No suicidal or homicidal ideation. Attention and memory seem to be fair. Insight and judgement fair. Impulse control is fair. IMPRESSION: History of polysubstance dependence, opiate dependence, opiate withdrawal, history of cocaine abuse, pyelonephritis. PLAN AND RECOMMENDATIONS: The patient is seen, meds reviewed. Continue methadone as ordered. As stated, we will lower her dose of methadone to 50 mg daily tomorrow and continue antibiotics as ordered. We will try to refer her to an outpatient methadone clinic once the patient is medically cleared. Review of her medications, we will discontinue methimazole. Melchor Gil MD [facility] # [id number] [place]
[2017-11-30] MEDS: Meropenem 500 MG in Sodium Chloride 0.9% 100 ML IVPB SCH ×3 (05:56→21:51)
[2017-11-30 08:55] LABS: BASO % 0.7 % (0.0-2.0); EOS # 0.1 K/uL (0.0-0.7); EOS % 2.3 % (0.0-4.0); LYMPH # 1.7 K/uL (1.0-4.3); LYMPH % 29.8 % (20.0-40.0); MEAN CELL VOLUME 83.8 fL (81.0-99.0); MEAN CORPUSCULAR HEMOGLOBIN 27.6 pg (27.0-31.0); MEAN CORPUSCULAR HGB CONC 32.9 g/dL (33.0-37.0); MEAN PLATELET VOLUME 7.4 fL (7.2-11.7); MONO # 0.7 K/uL (0.0-0.8); MONO % 12.8 % (0.0-10.0); NEUT # 3.1 K/uL (1.8-7.0); NEUT % 54.4 % (50.0-75.0); RBC 3.62 Mil/uL (3.80-5.20); RED CELL DISTRIBUTION WIDTH 15.2 % (11.5-14.5); WHITE BLOOD COUNT 5.8 K/uL (4.8-10.8)
[2017-11-30 09:05] LABS: BLOOD UREA NITROGEN 12 mg/dL (7-17); CALCIUM 8.5 mg/dl (8.6-10.4); GFR AFRICAN-AMERICAN > 60; GFR NON-AFRICAN AMERICAN > 60
[2017-11-30] MEDS: Enoxaparin 40 mg Syringe SC SCH (09:39)
[2017-11-30] MEDS ORDERED: Methadone 40 mg Tab PO SCH (10:00)
--- NOTE | 2017-11-30 17:16 | CP.PCM.PN ---
Subjective - Date & Time of Evaluation Date of Evaluation: 11/30/17 Time of Evaluation: 17:14 - Subjective Subjective: painl flank and pelvic area Objective - Vital Signs/Intake and Output Vital Signs (last 24 hours): Temp Pulse Resp BP Pulse Ox 97.3 F L 65 18 117/67 97 11/30/17 15:32 11/30/17 15:32 11/30/17 15:32 11/30/17 15:32 11/30/17 15:32 Intake and Output: 11/30/17 11/30/17 06:59 18:59 Intake Total 400 Balance 400 - Medications Medications: Current Medications Enoxaparin Sodium (Lovenox) 40 mg SC DAILY [facility] Last Admin: 11/30/17 09:39 Dose: 40 mg Meropenem 500 mg/ Sodium (Chloride) 100 mls @ 100 mls/hr IVPB Q8 [facility] PRN Reason: Protocol Last Admin: 11/30/17 13:39 Dose: 100 mls/hr Lorazepam (Ativan) 2 mg PO Q6H PRN PRN Reason: anxiety Last Admin: 11/30/17 13:39 Dose: 2 mg Methadone HCl (Methadose) 40 mg PO DAILY [facility] Last Admin: 11/30/17 09:39 Dose: 40 mg Methadone HCl (Methadone) 10 mg PO DAILY [facility] Last Admin: 11/30/17 09:39 Dose: 10 mg Ondansetron HCl (Zofran Inj) 4 mg IVP DAILY@ONCE PRN PRN Reason: Nausea/Vomiting Last Admin: 11/29/17 11:15 Dose: 4 mg Temazepam (Restoril) 30 mg PO HS PRN PRN Reason: Insomnia Last Admin: 11/29/17 22:37 Dose: 30 mg - Labs Labs: 11/30/17 08:41 11/30/17 08:41 - Constitutional Appears: Non-toxic - Head Exam Head Exam: NORMAL INSPECTION - Eye Exam Eye Exam: Normal appearance Pupil Exam: NORMAL ACCOMODATION - ENT Exam ENT Exam: Mucous Membranes Moist - Neck Exam Neck Exam: Full ROM - Respiratory Exam Respiratory Exam: NORMAL BREATHING PATTERN - Cardiovascular Exam Cardiovascular Exam: REGULAR RHYTHM - GI/Abdominal Exam GI & Abdominal Exam: Tenderness, Normal Bowel Sounds - Extremities Exam Extremities Exam: Normal Inspection - Back Exam Back Exam: NORMAL INSPECTION - Neurological Exam Neurological Exam: Normal Gait - Psychiatric Exam Psychiatric exam: Normal Affect - Skin Skin Exam: Normal Color, Pallor Assessment and Plan - Assessment and Plan (Free Text) Assessment: ac pyelinephritis e coli infection heroin withdrwal Plan: id consult
--- NOTE | 2017-11-30 19:24 | CP.PCM.CON ---
History of Present Illness - History of Present Illness History of Present Illness: 42 yo female admitted for flank pain found to have right pyelo urine c/s + ESBL ecoli IV Merrem in progress recc : eval, HIV and Hep screes, counseling for Polysubstance abuse Review of Systems - Constitutional Constitutional: As Per HPI - EENT Eyes: absent: As Per HPI, Blind Spots, Blurred Vision, Change in Vision, Decreased Night Vision, Diplopia, Discharge, Dry Eye, Exophthalmos, Floaters, Irritation, Itchy Eyes, Loss of Peripheral Vision, Pain, Photophobia, Requires Corrective Lenses, Sees Flashes, Spots in Vision, Tunnel Vision, Other Visual Disturbances, Loss of Vision, Other Ears: absent: As Per HPI, Decreased Hearing, Ear Discharge, Ear Pain, Tinnitus, Abnormal Hearing, Disequilibrium, Dizziness, Other Nose/Mouth/Throat: absent: As Per HPI, Epistaxis, Nasal Congestion, Nasal Discharge, Nasal Obstruction, Nasal Trauma, Nose Pain, Post Nasal Drip, Sinus Pain, Sinus Pressure, Bleeding Gums, Change in Voice, Dental Pain, Dry Mouth, Dysphagia, Halitosis, Hoarsness, Lip Swelling, Mouth Lesions, Mouth Pain, Odynophagia, Sore Throat, Throat Swelling, Tongue Swelling, Facial Pain, Neck Pain, Neck Mass, Other - Breasts Breasts: absent: As Per HPI, Change in Shape, Mass, Pain, Nipple Discharge, Nipple Inversion, Skin Changes, Swelling, Other - Cardiovascular Cardiovascular: absent: As Per HPI, Acrocyanosis, Chest Pain, Chest Pain at Rest , Chest Pain with Activity, Claudication, Diaphoresis, Dyspnea, Dyspnea on Exertion, Edema, Irregular Heart Rhythm, Pain Radiating to Arm/Neck/Jaw, Leg Edema, Leg Ulcers, Lightheadedness, Orthopnea, Palpitations, Paroxysmal Nocturnal Dyspnea, Pedal Edema, Radiating Pain, Rapid Heart Rate, Slow Heart Rate, Syncope, Other - Respiratory Respiratory: absent: As Per HPI, Cough, Dyspnea, Hemoptysis, Dyspnea on Exertion , Wheezing, Snoring, Stridor, Pain on Inspiration, Chest Congestion, Excessive Mucous Production, Change in Mucous Color, Pain with Coughing, Other - Gastrointestinal Gastrointestinal: absent: As Per HPI, Abdominal Pain, Belching, Bloating, Change in Bowel Habits, Change in Stool Character, Coffee Ground Emesis, Constipation, Cramping, Diarrhea, Dyspepsia, Dysphagia, Early Satiety, Excessive Flatus, Fecal Incontinence, Heartburn, Hematemesis, Hematochezia, Loose Stools, Melena, Nausea, Odynophagia, Temesmus, Vomiting, Other - Genitourinary Genitourinary: As Per HPI - Reproductive: Female Reproductive:Female: absent: As Per HPI, Amenorrhea, Amenorrhea/ Control, Currently Menstual, Cycle <21 Days, Cycle >35 Days, Cycle Variable, Menses 1-7 Days, Menses >/= 8 Days, Menses Variable, Cycle > 4 Weeks Between, No Menses for 6 Months, Heavy Menses, Light Menses, Normal Menses, Spotting Between Cycles , S/P Hysterectomy, Menopausal, Post Menopausal, Premenarche, Abnormal Vaginal Bleeding, Dysmenorrhea, Dyspareunia, Genital Lesions, Genital Pruritis, Pelvic Pain, Prolapse Symptoms, Sexual Dysfunction, Vaginal Discharge, Vaginal Dryness , Vaginal Odor, Vaginal Pruritis, Other - Menstruation Menstruation: absent: As Per HPI, Amenorrhea, Amenorrhea/ Control, Currently Menstual, Cycle <21 Days, Cycle >35 Days, Cycle Variable, Menses 1-7 Days, Menses >/= 8 Days, Menses Variable, Cycle > 4 Weeks Between, No Menses for 6 Months, Heavy Menses, Light Menses, Normal Menses, Spotting Between Cycles , S/P Hysterectomy, Menopausal, Post Menopausal, Premenarche, Abnormal Vaginal Bleeding, Dysmenorrhea, Other - Musculoskeletal Musculoskeletal: absent: As Per HPI, Abnormal Gait, Arthralgias, Atrophy, Back Pain, Deformity, Joint Swelling, Limited Range of Motion, Loss of Height, Muscle Cramps, Muscle Weakness, Myalgias, Neck Pain, Numbness, Radiating Pain into Limb, Stiffness, Tingling, Other - Integumentary Integumentary: absent: As Per HPI, Acne, Alopecia, Bleeding Lesions, Change in Hair, Change in Nails, Change in Pigmentation, Changing Lesions, Dry Skin, Erythema, Furuncle, Hirsutism, Lesions, New Lesions, Non-Healing Lesions, Photosensitivity, Pruritus, Rash, Skin Pain, Skin Ulcer, Sores, Striae, Swelling , Unusual Bruising, Wounds, Jaundice, Other - Neurological Neurological: absent: As Per HPI, Abnormal Gait, Abnormal Hearing, Abnormal Movements, Abnormal Speech, Behavioral Changes, Burning Sensations, Confusion, Convulsions, Disequilibrium, Dizziness, Numbness, Focal Weakness, Frequent Falls , Headaches, Lack of Coordination, Loss of Vision, Memory Loss, Paresthesias, Radicular Pain, Restless Legs, Sensory Deficit, Syncope, Tingling, Tremor, Vertigo, Weakness, Other Visual Disturbances, Other - Psychiatric Psychiatric: absent: As Per HPI, Abnormal Sleep Pattern, Anhedonia, Anxiety, Auditory Hallucinations, Behavioral Changes, Change in Appetite, Change in Libido, Confusion, Depression, Difficulty Concentrating, Hallucinations, Homicidal Ideation, Hopelessness, Irritability, Memory Loss, Mood Swings, Panic Attacks, Paranoia, Suicidal Ideation, Visual Hallucinations, Tactile Hallucinations, Other - Endocrine Endocrine: absent: As Per HPI, Change in Body Appearance, Change in Libido, Cold Intolorance, Deepening of Voice, Excessive Sweating, Fatigue, Flushing, Heat Intolorance, Increase in Ring/Shoe/Hat Size, Palpitations, Polydipsia, Polyphagia, Polyuria, Other - Hematologic/Lymphatic Hematologic: absent: As Per HPI, Easy Bleeding, Easy Bruising, Lymphadenopathy, Other Past Patient History - Infectious Disease Hx of Infectious Diseases: None - Past Medical History & Family History Past Medical History?: No - Past Social History Smoking Status: Light Smoker < 10 Cigarettes Daily - CARDIAC Hx Cardiac Disorders: No Hx Hypertension: No - PULMONARY Hx Respiratory Disorders: No Hx Tuberculosis: No - NEUROLOGICAL Hx Neurological Disorder: No HX Cerebrovascular Accident: No Hx Seizures: No - HEENT Hx HEENT Problems: No - RENAL Hx Chronic Kidney Disease: No - ENDOCRINE/METABOLIC Hx Endocrine Disorders: Yes Hx Systemic Lupus Erythematosus: Yes - HEMATOLOGICAL/ONCOLOGICAL Hx Blood Disorders: No Hx Cancer: No Hx Human Immunodeficiency Virus (HIV): No - INTEGUMENTARY Hx Dermatological Problems: No - MUSCULOSKELETAL/RHEUMATOLOGICAL Hx Musculoskeletal Disorders: No Hx Falls: No - GASTROINTESTINAL Hx Gastrointestinal Disorders: No - GENITOURINARY/GYNECOLOGICAL Hx Genitourinary Disorders: No Hx Sexually Transmitted Disorders: No - PSYCHIATRIC Hx Psychophysiologic Disorder: Yes Hx Anxiety: Yes Hx Bipolar Disorder: Yes Hx Depression: Yes Hx Substance Use: Yes (heroine) - SURGICAL HISTORY Hx Surgeries: Yes Hx Section: Yes (X2) - ANESTHESIA Hx Anesthesia: Yes Hx Anesthesia Reactions: No Hx Malignant Hyperthermia: No Has any member of the family had a problem w/ anesthesia?: No Meds Allergies/Adverse Reactions: Allergies Allergy/AdvReac Type Severity Reaction Status Date / Time No Known Allergies Allergy Verified 11/27/17 12:36 - Medications Medications: Current Medications Enoxaparin Sodium (Lovenox) 40 mg SC DAILY [facility] Last Admin: 11/30/17 09:39 Dose: 40 mg Meropenem 500 mg/ Sodium (Chloride) 100 mls @ 100 mls/hr IVPB Q8 JIMY PRN Reason: Protocol Last Admin: 11/30/17 13:39 Dose: 100 mls/hr Lorazepam (Ativan) 2 mg PO Q6H PRN PRN Reason: anxiety Last Admin: 11/30/17 13:39 Dose: 2 mg Methadone HCl (Methadose) 40 mg PO DAILY [facility] Methadone HCl (Methadone) 30 mg PO DAILY [facility] Methadone HCl (Methadone) 20 mg PO DAILY [facility] Methadone HCl (Methadone) 10 mg PO DAILY [facility] Ondansetron HCl (Zofran Inj) 4 mg IVP DAILY@ONCE PRN PRN Reason: Nausea/Vomiting Last Admin: 11/29/17 11:15 Dose: 4 mg Temazepam (Restoril) 30 mg PO HS PRN PRN Reason: Insomnia Last Admin: 11/29/17 22:37 Dose: 30 mg Physical Exam - Constitutional Appears: Non-toxic, Cachectic, Chronically Ill - Head Exam Head Exam: NORMOCEPHALIC - Eye Exam Eye Exam: PERRL. absent: Scleral icterus - ENT Exam ENT Exam: Mucous Membranes Dry, Normal External Ear Exam - Neck Exam Neck exam: Negative for: Lymphadenopathy - Respiratory Exam Respiratory Exam: Decreased Breath Sounds - Cardiovascular Exam Cardiovascular Exam: REGULAR RHYTHM, +S1, +S2 - GI/Abdominal Exam GI & Abdominal Exam: Diminished Bowel Sounds, Soft. absent: Tenderness - Rectal Exam Rectal Exam: Deferred - Exam Exam: NORMAL INSPECTION - Extremities Exam Extremities exam: Positive for: pedal pulses present. Negative for: calf tenderness, pedal edema, tenderness - Back Exam Back exam: CVA tenderness (R). absent: CVA tenderness (L), paraspinal tenderness - Neurological Exam Neurological exam: Alert, CN II-XII Intact, Oriented x3, Reflexes Normal - Psychiatric Exam Psychiatric exam: Normal Mood Results - Vital Signs Recent Vital Signs: Last Vital Signs Temp 97.3 F L 11/30/17 15:32 Pulse 65 11/30/17 15:32 Resp 18 11/30/17 15:32 BP 117/67 11/30/17 15:32 Pulse Ox 97 11/30/17 15:32 - Labs Result Diagrams: 11/30/17 08:41 11/30/17 08:41 Labs: Laboratory Results - last 24 hr 11/30/17 11/30/17 11/30/17 08:41 08:41 08:41 WBC 5.8 RBC 3.62 L Hgb 10.0 L Hct 30.3 L MCV 83.8 MCH 27.6 MCHC 32.9 L RDW 15.2 H Plt Count 357 MPV 7.4 Neut % (Auto) 54.4 Lymph % (Auto) 29.8 [place] % (Auto) 12.8 H Eos % (Auto) 2.3 Baso % (Auto) 0.7 Neut # (Auto) 3.1 Lymph # (Auto) 1.7 [place] # (Auto) 0.7 Eos # (Auto) 0.1 Baso # (Auto) 0.0 Sodium 137 Potassium 3.6 Chloride 101 Carbon Dioxide 29 Anion Gap 10 BUN 12 Creatinine 0.6 L Est GFR ( Amer) > 60 Est GFR (Non-Af Amer) > 60 POC Glucose (mg/dL) Random Glucose 78 Calcium 8.5 L Free T4 1.01 TSH 3rd Generation 6.60 H 11/30/17 16:58 WBC RBC Hgb Hct MCV MCH MCHC RDW Plt Count MPV Neut % (Auto) Lymph % (Auto) [place] % (Auto) Eos % (Auto) Baso % (Auto) Neut # (Auto) Lymph # (Auto) [place] # (Auto) Eos # (Auto) Baso # (Auto) Sodium Potassium Chloride Carbon Dioxide Anion Gap BUN Creatinine Est GFR ( Amer) Est GFR (Non-Af Amer) POC Glucose (mg/dL) 95 Random Glucose Calcium Free T4 TSH 3rd Generation Assessment & Plan (1) Lesion of right ione kidney Status: Acute (2) Pyelonephritis, acute Status: Acute (3) Opiate dependence Status: Acute - Assessment and Plan (Free Text) Assessment: cont iv merrem 'need eval
[2017-12-01 01:07] VITALS: O2SAT 96
[2017-12-01] MEDS: Meropenem 500 MG in Sodium Chloride 0.9% 100 ML IVPB SCH (06:53)
[2017-12-01 07:44] LABS: BASO % 0.6 % (0.0-2.0); EOS # 0.1 K/uL (0.0-0.7); EOS % 2.5 % (0.0-4.0); HEMOGLOBIN 10.9 g/dL (11.0-16.0); LYMPH # 2.1 K/uL (1.0-4.3); LYMPH % 41.6 % (20.0-40.0); MEAN CELL VOLUME 84.1 fL (81.0-99.0); MEAN CORPUSCULAR HEMOGLOBIN 28.1 pg (27.0-31.0); MEAN CORPUSCULAR HGB CONC 33.4 g/dL (33.0-37.0); MEAN PLATELET VOLUME 7.3 fL (7.2-11.7); MONO # 0.6 K/uL (0.0-0.8); MONO % 12.2 % (0.0-10.0); NEUT # 2.2 K/uL (1.8-7.0); NEUT % 43.1 % (50.0-75.0); RBC 3.88 Mil/uL (3.80-5.20); RED CELL DISTRIBUTION WIDTH 15.4 % (11.5-14.5); WHITE BLOOD COUNT 5.1 K/uL (4.8-10.8)
[2017-12-01 07:54] LABS: ALB/GLOB RATIO 0.9 (1.0-2.1); ALBUMIN 3.5 g/dL (3.5-5.0); ALT/SGPT 56 U/L (9-52); AST/SGOT 67 U/L (14-36); BLOOD UREA NITROGEN 14 mg/dL (7-17); CALCIUM 9.4 mg/dl (8.6-10.4); GFR AFRICAN-AMERICAN > 60; GFR NON-AFRICAN AMERICAN > 60
--- NOTE | 2017-12-01 08:18 | PN ---
DATE: 11/30/2017 SUBJECTIVE: Patient is seen. Patient is complaining of drowsiness from the methadone. She is still having anxiety attacks, but currently on Ativan p.r.n. Patient is cooperative. She is also taking antibiotics for UTI. I have discussed with patient I will slowly drop her methadone 10 mg daily, starting tomorrow until she will finish it and then patient can go to an outpatient methadone clinic, possibly at [facility]. She said she had tried just two clinics and wants to go back to [facility]. She also reports her who was an IV drug user also is seeking some help at [facility]. She has been compliant with no behavioral problem. VITAL SIGNS: Temperature 97.3, pulse 65, blood pressure 117/67, respiration is 18, oxygen saturation 97%. REVIEW OF SYSTEMS: GENERAL: Patient is seen in her room with her . Patient seems drowsy, but seen with her . in her room. SKIN: No diaphoresis. HEENT: No headache. No dizziness. NECK: Supple. RESPIRATORY: No dyspnea. CARDIOVASCULAR: No chest pain. GASTROINTESTINAL: No nausea, no vomiting. EXTREMITIES: Patient is ambulatory. MUSCULOSKELETAL: Feels weak. NEUROLOGICAL: Alert and oriented x3. GENITOURINARY: No urinary problems. MENTAL STATUS EXAMINATION: Well-developed female who looks stated age, alert and oriented x3. Mood is anxious off and on. Speech spontaneous. Affect is reactive. Thought process coherent. Thought content, patient is expressing some motivation to go for outpatient methadone clinic. Maintenance treatment after being detoxed in the hospital once she is medically cleared. No psychosis. No suicidal thought or ideation. Attention and memory seems to be fair. Insight and judgment improving. Impulse control is fair at this time. IMPRESSION: History of polysubstance dependence, opioid dependence, opioid withdrawal, history of heroin abuse, pyelonephritis. RECOMMENDATIONS: Patient is seen, meds reviewed. Continue antibiotics as ordered. Continue methadone taper as ordered. P.o. Ativan is ordered and Restoril p.r.n. is ordered. We will try to refer her to an outpatient methadone clinic, possibly to [facility] once patient is medically cleared and discharged from the hospital. Melchor Gil MD [facility] # [id number]
[2017-12-01 08:24] VITALS: RESP 18; TEMP 97.3
[2017-12-01 08:32] LABS: HEPATITIS B SURFACE AG Negative (NEGATIVE)
[2017-12-01 08:39] LABS: HEPATITIS A IGM NEGATIVE (NEGATIVE); HEPATITIS B CORE AB NEGATIVE (NEGATIVE)
[2017-12-01] MEDS ORDERED: Methadone 40 mg Tab PO SCH (10:00)
[2017-12-01 10:03] LABS: HEPATITIS C ANTIBODY REACTIVE (NEGATIVE)
[2017-12-01] MEDS: Enoxaparin 40 mg Syringe SC SCH (10:03)
[2017-12-01 10:37] VITALS: BP 96/58; PULSE 61
--- NOTE | 2017-12-01 10:49 | CP.PCM.PN ---
Subjective - Date & Time of Evaluation Date of Evaluation: 12/01/17 Time of Evaluation: 10:47 - Subjective Subjective: feels nausea still pain seen by dr mayfield on more antibiotics Objective - Vital Signs/Intake and Output Vital Signs (last 24 hours): Temp Pulse Resp BP Pulse Ox 97.3 F L 61 18 96/58 L 96 12/01/17 08:23 12/01/17 09:55 12/01/17 08:23 12/01/17 09:55 12/01/17 08:23 - Medications Medications: Current Medications Enoxaparin Sodium (Lovenox) 40 mg SC DAILY [facility] Last Admin: 12/01/17 10:03 Dose: 40 mg Meropenem 500 mg/ Sodium (Chloride) 100 mls @ 100 mls/hr IVPB Q8 JIMY PRN Reason: Protocol Last Admin: 12/01/17 06:53 Dose: 100 mls/hr Lorazepam (Ativan) 2 mg PO Q6H PRN PRN Reason: anxiety Last Admin: 11/30/17 20:04 Dose: 2 mg Methadone HCl (Methadose) 40 mg PO DAILY [facility] Last Admin: 12/01/17 10:03 Dose: 40 mg Methadone HCl (Methadone) 30 mg PO DAILY [facility] Methadone HCl (Methadone) 20 mg PO DAILY [facility] Methadone HCl (Methadone) 10 mg PO DAILY [facility] Ondansetron HCl (Zofran Inj) 4 mg IVP DAILY@ONCE PRN PRN Reason: Nausea/Vomiting Last Admin: 11/29/17 11:15 Dose: 4 mg Temazepam (Restoril) 30 mg PO HS PRN PRN Reason: Insomnia Last Admin: 12/01/17 00:09 Dose: 30 mg - Labs Labs: 12/01/17 07:30 12/01/17 07:30 - Constitutional Appears: In Acute Distress - Head Exam Head Exam: ATRAUMATIC - Eye Exam Eye Exam: Conjunctival injection Pupil Exam: PERRL - ENT Exam ENT Exam: Mucous Membranes Dry - Neck Exam Neck Exam: Full ROM - Respiratory Exam Respiratory Exam: Clear to Ausculation Bilateral - Cardiovascular Exam Cardiovascular Exam: REGULAR RHYTHM - GI/Abdominal Exam GI & Abdominal Exam: Normal Bowel Sounds - Extremities Exam Extremities Exam: Normal Inspection - Back Exam Back Exam: NORMAL INSPECTION - Neurological Exam Neurological Exam: Awake - Psychiatric Exam Psychiatric exam: Depressed - Skin Skin Exam: Normal Color, Pallor Assessment and Plan - Assessment and Plan (Free Text) Assessment: ac pyelonephritis hep c infection iv drug abuse Plan: cont as per order
== END 2017-12-01 12:48 | disposition left against medical advice (07) | DRG 320 ==
LOC: C.ER 12:28 → C.9E 18:11 → C.3T 19:16 → C.5S 11-30 00:49
PROVIDERS: ADMIT Internal Medicine; ATTEND Internal Medicine
PROC: HZ2ZZZZ Detoxification Services for Substance Abuse Treatment (ICD-10-PCS; principal; 2017-11-28)
DX: N10 Acute pyelonephritis (principal); F11.23 Opioid dependence with withdrawal; M32.9 Systemic lupus erythematosus, unspecified; E11.9 Type 2 diabetes mellitus without complications; B96.20 Unspecified Escherichia coli [E. coli] as the cause of diseases classified elsewhere; B19.20 Unspecified viral hepatitis C without hepatic coma; F31.9 Bipolar disorder, unspecified; F41.1 Generalized anxiety disorder; F17.210 Nicotine dependence, cigarettes, uncomplicated; N28.9 Disorder of kidney and ureter, unspecified

== ENCOUNTER 2018-08-04 21:01 | Emergency (ER) | payer SELFPAY ==
[2018-08-04 21:12] VITALS: RESP 20; TEMP 98.6
--- NOTE | 2018-08-04 22:01 | C.PDOC ---
History Of Present Illness 43-year-old female presents to the ED for evaluation of right-sided flank pain which began yesterday. Patient states she was evaluated in the hospital in November 2017 and was diagnosed with pyelonephritis. Patient was set to be admitted when she signed out against medical advice. Patient states that her current symptoms feel similar to prior and presents to the ED for further evaluation. Patient has history of heroin abuse. She denies fever, chills, nausea, vomiting, urinary/bowel incontinence, extremity numbness/weakness. Time Seen by Provider: 08/04/18 21:38 Chief Complaint (Nursing): Back Pain History Per: Patient History/Exam Limitations: no limitations Onset/Duration Of Symptoms: Hrs Current Symptoms Are (Timing): Still Present Quality Of Discomfort: "Pain" Associated Symptoms: denies: Incontinence, New Weakness, New Numbness Past Medical History Reviewed: Historical Data, Nursing Documentation, Vital Signs Vital Signs: Last Vital Signs Temp 98.6 F 08/04/18 21:07 Pulse 101 H 08/04/18 21:07 Resp 20 08/04/18 21:07 BP 117/82 08/04/18 21:07 Pulse Ox 100 08/04/18 21:07 - Medical History PMH: Anxiety, Bipolar Disorder, Depression, Diabetes (Patient reports being "borderline" diabetic.) Denies: HIV, HTN, Chronic Kidney Disease, Seizures, Sexually Transmitted Disease Surgical History: No Surg Hx - [facility] DETOXIFICATION SERVICES FOR SUBSTANCE ABUSE TREATMENT (11/27/17) Family History: States: Unknown Family Hx - Social History Hx Alcohol Use: No Hx Substance Use: Yes (heroine) - Immunization History Hx Tetanus Toxoid Vaccination: No Hx Influenza Vaccination: Yes Hx Pneumococcal Vaccination: No Review Of Systems Constitutional: Negative for: Fever, Chills Gastrointestinal: Negative for: Nausea, Vomiting Musculoskeletal: Positive for: Other (right flank pain ) Neurological: Negative for: Weakness, Numbness Physical Exam - Physical Exam Appears: Non-toxic, No Acute Distress Skin: Normal Color, Warm, Dry Head: Atraumatic, Normacephalic Eye(s): bilateral: Normal Inspection Oral Mucosa: Moist Neck: Supple Chest: Symmetrical, No Deformity, No Tenderness Cardiovascular: Rhythm Regular, No Murmur Respiratory: Normal Breath Sounds, No Rales, No Rhonchi, No Wheezing Gastrointestinal/Abdominal: Soft, No Tenderness, No Guarding, No Rebound Back: CVA Tenderness Extremity: Normal ROM, Capillary Refill (less than 2 seconds ) Neurological/Psych: Oriented x3, Normal Speech, Normal Cognition Gait: Steady ED Course And Treatment - Laboratory Results Result Diagrams: 08/04/18 22:07 08/04/18 22:44 O2 Sat by Pulse Oximetry: 100 (on RA) Pulse Ox Interpretation: Normal Progress Note: Bloodwork, urinalysis, CT A/P ordered. Lab results show some red blood cell count. Patient has slight hypokalemia. K-Dur PO and Motrin PO given. Disposition - Disposition Disposition Time: 01:20 Condition: STABLE Forms: [employer] (Swedish) - Clinical Impression Clinical Impression: Flank pain - PA / [employer] / Resident Statement MD/DO has reviewed & agrees with the documentation as recorded. - Scribe Statement The provider has reviewed the documentation as recorded by the Scribe (Raegan Blas) All medical record entries made by the Scribe were at my direction and personally dictated by me. I have reviewed the chart and agree that the record accurately reflects my personal performance of the history, physical exam, medical decision making, and the department course for this patient. I have also personally directed, reviewed, and agree with the discharge instructions and disposition. Physician Patient Turnover Patient Signed Over To: Jenelle Reynoso Handoff Comments: pending CT scan and dispo
[2018-08-04 22:16] LABS: SQUAMOUS EPITHIAL 1 /hpf (0-5); URINE BILIRUBIN NEGATIVE (NEGATIVE); URINE BLOOD 1+ (NEGATIVE); URINE CLARITY Clear (Clear); URINE COLOR Yellow (YELLOW); URINE GLUCOSE (UA) NORMAL (Normal); URINE HYALINE CAST 0-2 /lpf (0-2); URINE LEUKOCYTE ESTERASE NEG Leu/uL (Negative); URINE PROTEIN NEGATIVE (NEGATIVE)
[2018-08-04 22:21] LABS: HCG,QUALITATIVE URINE NEGATIVE (NEGATIVE)
[2018-08-04 22:47] LABS: BASO % 0.3 % (0.0-2.0); EOS # 0.2 K/uL (0.0-0.7); HEMOGLOBIN 11.6 g/dL (11.0-16.0); LYMPH # 1.7 K/uL (1.0-4.3); LYMPH % 30.7 % (20.0-40.0); MEAN CELL VOLUME 84.4 fL (81.0-99.0); MEAN CORPUSCULAR HGB CONC 33.2 g/dL (33.0-37.0); MEAN PLATELET VOLUME 7.5 fL (7.2-11.7); MONO # 0.4 K/uL (0.0-0.8); MONO % 7.7 % (0.0-10.0); NEUT # 3.1 K/uL (1.8-7.0); NEUT % 58.3 % (50.0-75.0); RBC 4.15 Mil/uL (3.80-5.20); RED CELL DISTRIBUTION WIDTH 14.9 % (11.5-14.5); WHITE BLOOD COUNT 5.4 K/uL (4.8-10.8)
[2018-08-04 23:04] LABS: ALB/GLOB RATIO 1.2 (1.0-2.1); ALT/SGPT 108 U/L (9-52); AST/SGOT 95 U/L (14-36); BLOOD UREA NITROGEN 14 mg/dL (7-17); CALCIUM 8.8 mg/dl (8.6-10.4); GFR NON-AFRICAN AMERICAN > 60
[2018-08-04] MEDS ORDERED: Potassium Chloride 20 mEq ER Tab PO STA (23:09)
[2018-08-04] MEDS ORDERED: Potassium Chloride 20 mEq ER Tab PO ONE ×2 (23:18→23:21)
[2018-08-05 02:13] VITALS: BP 120/68; PULSE 79; O2SAT 98
--- NOTE | 2018-08-05 09:54 | CT ---
Date of service: 08/05/2018 PROCEDURE: CT Abdomen and Pelvis without intravenous contrast HISTORY: right flank pain COMPARISON: 11/27/2017 TECHNIQUE: Multiple contiguous axial images were performed through the abdomen and pelvis without the use of intravenous contrast. Subsequently, sagittal and coronal reformatted images were obtained. Radiation dose: Total exam DLP = 275.0 mGy-cm. This CT exam was performed using one or more of the following dose reduction techniques: Automated exposure control, adjustment of the mA and/or kV according to patient size, and/or use of iterative reconstruction technique. FINDINGS: LOWER THORAX: Unremarkable. LIVER: Unremarkable. No gross lesion or ductal dilatation. GALLBLADDER AND BILE DUCTS: Unremarkable. PANCREAS: Unremarkable. No gross lesion or ductal dilatation. SPLEEN: Unremarkable. ADRENALS: Unremarkable. No mass. KIDNEYS AND URETERS: Unremarkable. No hydronephrosis. No solid mass. Punctate 1 millimeter nonobstructive left renal calculus. VASCULATURE: Unremarkable. No aortic aneurysm. Aortic atherosclerotic calcification or mural plaque present. BOWEL: Underdistended and or mildly thick-walled stomach. Moderate fecal retention in the colon. APPENDIX: Partially imaged, within normal limits. PERITONEUM: Unremarkable. No free fluid. No free air. LYMPH NODES: Few shotty inguinal and para-aortic lymph nodes. BLADDER: Unremarkable. REPRODUCTIVE: Heterogeneous and prominent uterus and bilateral adnexa. BONES: Degenerative changes in the spine. Productive change at the pubic symphysis. OTHER FINDINGS: None. IMPRESSION: Moderate fecal retention in the colon. Additional findings as above. A preliminary report was generated at 1:24 a.m. on 08/05/[address]Abbas Shepherd from [email or web address]
== END 2018-08-05 02:13 | disposition home or self-care (01) ==
LOC: C.ER 21:01
DX: K59.00 Constipation, unspecified (principal); R10.9 Unspecified abdominal pain; E87.6 Hypokalemia